=== PATIENT | male | born 1990 | race African-American/Black ===

== ENCOUNTER 2017-10-30 11:28 | Outpatient (CLI) ==
[2014-06-08 18:51] VITALS: BMI 25.0
== END 2017-10-30 11:29 | disposition home or self-care (01) ==
LOC: FCC-LAB 11:28
PROVIDERS: ATTEND Nurse Practitioner Family
DX: R10.84 Generalized abdominal pain (principal); K21.9 Gastro-esophageal reflux disease without esophagitis
CPT/HCPCS: 36415; 80053; 80061; 81001; 82150; 83690; 85025; 86677

== ENCOUNTER 2018-04-14 08:51 | Emergency (ER) ==
[2018-04-14 08:57] VITALS: BP 113/79; TEMP 99.1; BMI 26.3
[2018-04-14] MEDS ORDERED: GI COCKTAIL PO STA (09:42)
--- NOTE | 2018-04-14 10:20 | CT ---
EXAM: Noncontrast CT of the abdomen and pelvis. HISTORY: Epigastric pain. COMPARISON: None. TECHNIQUE: Contiguous axial images at 3 mm intervals were obtained from lung bases through the pelvi s. No contrast was given. Coronal reformats were reviewed. FINDINGS: The study is limited without contrast. CHEST: The lung bases show no lobar consolidation or effusion. There are calcified granulomas and c alcified lymph nodes. Small perifissural nodules are seen in the right lung base. No further follow -up needed.The heart size is within normal limits. ABDOMEN: Evaluation of the soft tissue organs is limited without contrast. LIVER: Noncontrast images of the liver show no solid mass lesion or intrahepatic ductal dilatation. BILIARY: The gallbladder is normally distended. No gallstones are noted. No pericholecystic fluid or inflammation. On axial image 45, there are two small calcifications which may lie within the comm on bile duct. The duct is not dilated. SPLEEN: The spleen is unremarkable. PANCREAS: The pancreas shows no mass lesion or peripancreatic inflammation. ADRENAL GLANDS: The adrenal glands are normal. RENAL: The kidneys show no hydronephrosis or nephrolithiasis. There are no obstructing ureteral sto flavia. No solid mass lesions are identified. RETROPERITONEUM: The aorta is unopacified. No aneurysm is identified. No significant aortic calcif ications are seen. There is no retroperitoneal or mesenteric adenopathy. BOWEL: The bowel is unopacified. There is no obstruction or inflammatory change. There is no free fluid or free air. No significant inflammatory changes are seen. The appendix is identified and is normal. PELVIS: BLADDER: The bladder is well distended and appears normal. GENITOURINARY STRUCTURES: The prostate is unremarkable. OSSEOUS STRUCTURES: The osseous structures are normal for age. IMPRESSION 1. No acute intra-abdominal abnormality. Limited study without contrast. No obstructing ureteral s tones. 2. The appendix is normal. 3. There are two small calcifications measuring to 2 to 3 mm in size. These are near the common john e duct and may be within the duct. There is no ductal dilatation. Correlate with history and sympto ms. Ultrasound may be beneficial.
--- NOTE | 2018-04-14 10:36 | ED.PDOC ---
General ED Provider: Dr. JIMMY HINTON Chief Complaint: Abdominal Pain Stated Complaint: abdominal pain Time Seen by Physician: 09:00 (seen with rosa us at all time pt has reflux issue is very familiar with this pain his off meds x weeks) Mode of Arrival: Walk-In Information Source: Patient Exam Limitations: No limitations Primary Care Provider: PAULINO MAGUIRE Nursing and Triage Documentation Reviewed and Agree: Yes Does patient meet sepsis criteria?: No System Inflammatory Response Syndrome: Not Applicable Sepsis Protocol: For patient's 13 years and over: Temp is 96.8 and below OR 101 and greater Pulse >90 BPM Resp >20/minute Acutely Altered Mental Status Are patient's symptoms suggestive of a new infection, such as: -Pneumonia -Skin, Soft Tissue -Endocarditis -UTI -Bone, Joint Infection -Implantable Device -Acute Abdominal Infection -Wound Infection -Meningitis -Blood Stream Catheter Infection -Unknown GI Complaint Exam - Abdominal Pain Complaint/Exam Onset: Gradual Duration: 1 day Symptoms Are: Still present Timing: Intermittent Current Severity: Moderate Location of Pain: Epigastric Radiates To: Denies: Chest, Back, Flank, LLQ, RLQ, Inguinal Character: Reports: Burning Aggravating: Reports: None Alleviating: Reports: None Associated Signs and Symptoms: Denies: Diaphoresis, Fever, Cough, Chest pain, Dizziness, Back pain, Constipation, Blood in stool, Dysuria, Urinary frequency, Decreased urine output, Decreased appetite, Discharge, Nausea, Vomiting, Diarrhea, Decreased activity Related History: Reports: Similar episode AAA Risk Factors: Reports: None Cardiac Risk Factors: Reports: None Testicular Torsion Risk Factors: Reports: None Surgical Obstruction Risk Factors: Reports: None Related Surgical History: Reports: None Abdominal Findings: Present: None Differential Diagnoses: Appendicitis, Bowel Obstruction, Constipation, Diverticulitis, Gastroenteritis, Hepatitis, Pancreatitis, Irritable Bowel Syndrome Review of Systems - Review Of Systems Constitutional: Reports: No symptoms Eyes: Reports: No symptoms Ears, Nose, Mouth, Throat: Reports: No symptoms Respiratory: Reports: No symptoms Cardiac: Reports: No symptoms GI: Reports: Abdominal pain : Reports: No symptoms Musculoskeletal: Reports: No symptoms Skin: Reports: No symptoms Neurological: Reports: No symptoms Endocrine: Reports: No symptoms Hematologic/Lymphatic: Reports: No symptoms All Other Systems: Reviewed and Negative Past Medical History - Past Medical History Previously Healthy: Yes Endocrine: Reports: None Cardiovascular: Reports: None Respiratory: Reports: None Hematological: Reports: None Gastrointestinal: Reports: GERD Genitourinary: Reports: None Neuro/Psych: Reports: None Musculoskeletal: Reports: None Cancer: Reports: None - Surgical History General Surgical History: Reports: None - Family History Family History: Reports: None - Social History Smoking Status: Never smoker Hx Substance Use: No Alcohol Screening: None Physical Exam - Physical Exam Appearance: Well-appearing, No pain distress, Well-nourished Eyes: AGATHA, EOMI, Conjunctiva clear ENT: Ears normal, Nose normal, Oropharynx normal Respiratory: Airway patent, Breath sounds clear, Breath sounds equal, Respirations nonlabored Cardiovascular: RRR, Pulses normal, No rub, No murmur GI/: Soft, Nontender, No masses, Bowel sounds normal, No Organomegaly Musculoskeletal: Normal strength, ROM intact, No edema, No calf tenderness Skin: Warm, Dry, Normal color Neurological: Sensation intact, Motor intact, Reflexes intact, Cranial nerves intact, Alert, Oriented Psychiatric: Affect appropriate, Mood appropriate Interpretation - Radiology Interpretation Radiology Interpretation By: Radiologist Radiology Results: No acute changes Exam Interpreted: CT Scan Critical Care Note - Critical Care Note Total Time (mins): 0 Course - Course Hematology/Chemistry: 04/14/18 09:50 04/14/18 09:50 Orders, Labs, Meds: Lab Review 04/14/18 04/14/18 09:50 09:50 WBC 11.96 H RBC 4.53 L Hgb 14.1 Hct 40.0 L MCV 88.3 MCH 31.1 H MCHC 35.3 RDW Coeff of Aneudy 12.5 Plt Count 202 Immature Gran % (Auto) 0.3 Neut % (Auto) 82.4 Lymph % (Auto) 9.0 L Dupage % (Auto) 7.9 Eos % (Auto) 0.1 Baso % (Auto) 0.3 Immature Gran # (Auto) 0.0 Neut # (Auto) 9.9 H Lymph # (Auto) 1.1 Dupage # (Auto) 0.9 Eos # (Auto) 0.0 Baso # (Auto) 0.0 Sodium 136.5 L Potassium 4.04 Chloride 102.4 Carbon Dioxide 28.0 Anion Gap 10.14 BUN 11.5 Creatinine 1.04 Estimated GFR (MDRD) 102.00 BUN/Creatinine Ratio 11.05 Glucose 101.5 Calcium 9.82 Total Bilirubin 1.07 AST 46.0 ALT 74.6 H Alkaline Phosphatase 54.9 Total Protein 7.72 Albumin 4.57 Globulin 3.15 Albumin/Globulin Ratio 1.45 Amylase 102.0 Lipase 58.1 Orders Category Date Time Status AMYLASE Stat LAB 04/14/18 09:50 Completed CBC W/ AUTO DIFF Stat LAB 04/14/18 09:50 Completed COMPREHENSIVE METABOLIC PANEL Stat LAB 04/14/18 09:50 Completed LIPASE Stat LAB 04/14/18 09:50 Completed Mag-Al Plus//Lidocaine [Gi Cocktail] MEDS 04/14/18 09:42 Discontinued 30 ml PO ONCE STA CT ABDOMEN/PELVIS WO CONTRAST Stat RADS 04/14/18 09:42 Completed Medications Discontinued Medications Generic Name Dose Route Start Last Admin Trade Name Freq PRN Reason Stop Dose Admin Al Hydroxide/Mg Hydroxide 30 ml 04/14/18 09:42 04/14/18 10:03 Gi Cocktail PO 04/14/18 09:43 30 ml ONCE STA Administration Vital Signs: Temp Pulse Resp BP Pulse Ox 04/14/18 08:51 99.1 F 81 16 113/79 95 Departure - Departure Time of Disposition: 10:36 Disposition: HOME SELF-CARE Discharge Problem: Abdominal pain GERD (gastroesophageal reflux disease) Qualifiers: Esophagitis presence: esophagitis presence not specified Qualified Code(s): K21.9 - Gastro-esophageal reflux disease without esophagitis Instructions: Gastroesophageal Reflux Disease (ED) Condition: Good Pt referred to PMD for follow-up: Yes IPMP verified?: No Additional Instructions: Please call your Family Physician as soon as possible to schedule a follow-up appointment. Allergies/Adverse Reactions: Allergies No Known Allergies Allergy (Verified 04/14/18 08:58) Home Medications: Ambulatory Orders 1 [No Reported Medications] 06/07/14 Disposition Discussed With: Patient
== END 2018-04-14 10:47 | disposition home or self-care (01) ==
LOC: ED 08:51
DX: R10.9 Unspecified abdominal pain (principal); K21.9 Gastro-esophageal reflux disease without esophagitis
CPT/HCPCS: 36415; 80053; 82150; 83690; 85025; 99283

== ENCOUNTER 2018-04-17 13:01 | Outpatient (CLI) ==
[2018-04-16 11:33] VITALS: BMI 26.3
== END 2018-04-17 13:02 | disposition home or self-care (01) ==
LOC: FCC-LAB 13:01
PROVIDERS: ATTEND Family Medicine
DX: R10.13 Epigastric pain (principal)
CPT/HCPCS: 87338

== ENCOUNTER 2018-04-19 08:22 | Outpatient (CLI) ==
[2018-04-16 11:33] VITALS: BMI 26.3
--- NOTE | 2018-04-19 09:09 | US ---
EXAM: Abdominal ultrasound limited HISTORY: Epigastric pain COMPARISON: CT abdomen pelvis 04/14/2018 TECHNIQUE: Sonographic and limited Doppler evaluation of the right upper quadrant was performed. FINDINGS: The liver is normal in echogenicity and measures 12.6 cm. The portal vein is patent. The gallbladder demonstrates no sludge or stones. The gallbladder wall measures 0.2 cm in thickness. Co mmon bile duct is unremarkable and measures 0.2 cm in diameter, but is partially obscured due to andrew l gas. The pancreas is unremarkable in appearance. The right kidney measures 8.9 x 4.4 x 3.3 cm with cortical thickness of 0.8 cm. IMPRESSION: No acute sonographic abnormality to account for patient's symptoms.
== END 2018-04-19 08:23 | disposition home or self-care (01) ==
LOC: RAD 08:22
PROVIDERS: ATTEND Family Medicine
DX: R10.13 Epigastric pain (principal)

== ENCOUNTER 2018-04-25 07:57 | Outpatient (CLI) ==
[2018-04-16 11:33] VITALS: BMI 26.3
--- NOTE | 2018-04-25 10:33 | NM ---
EXAM: Hepatobiliary imaging HISTORY: Right upper quadrant pain COMPARISON: Limited abdominal ultrasound on 04/19/2018 showed no abnormality. TECHNIQUE: Patient was injected 5.5 mCi of technetium 99m mebrofenin intravenously. Multiple anterio r scintigraphic images of the right upper quadrant region of the abdomen were obtained up to 1 hour i nterval. Patient was subsequently given fatty meal and gallbladder ejection fraction was calculated. FINDINGS: There is normal visualization of liver, gallbladder, bile duct and small bowel loops. Gall bladder ejection fraction is 39%. IMPRESSION: Normal study
== END 2018-04-25 07:58 | disposition home or self-care (01) ==
LOC: RAD 07:57
PROVIDERS: ATTEND Family Medicine
DX: R10.11 Right upper quadrant pain (principal)

== ENCOUNTER 2018-05-01 15:27 | Emergency (ER) ==
[2018-05-01 15:29] VITALS: BMI 26.3
[2018-05-01 15:31] VITALS: BP 137/84; TEMP 99
--- NOTE | 2018-05-01 16:47 | ED.PDOC ---
General ED Provider: Dr. HEAVEN JAY Chief Complaint: Abscess Stated Complaint: Started as pimple on right buttock. Put prid on it and now is red, swollen, painful. No drainage Time Seen by Physician: 16:30 Mode of Arrival: Walk-In Information Source: Patient Primary Care Provider: PAULINO MAGUIRE Nursing and Triage Documentation Reviewed and Agree: Yes Does patient meet sepsis criteria?: No System Inflammatory Response Syndrome: Not Applicable Sepsis Protocol: For patient's 13 years and over: Temp is 96.8 and below OR 101 and greater Pulse >90 BPM Resp >20/minute Acutely Altered Mental Status Are patient's symptoms suggestive of a new infection, such as: -Pneumonia -Skin, Soft Tissue -Endocarditis -UTI -Bone, Joint Infection -Implantable Device -Acute Abdominal Infection -Wound Infection -Meningitis -Blood Stream Catheter Infection -Unknown Skin Complaint Exam - Skin/Soft Tissue Complaint/Exam Onset/Duration: last several days Symptoms Are: Worse Timing: Constant Initial Severity: Severe Current Severity: Severe Location: Rt Mid Buttocks Character: Reports: Redness, Swelling, Painful Aggravating: Reports: Touch Alleviating: Reports: None Associated Signs and Symptoms: Denies: Fever, Chills, Itching, Drainage, Bruising, Tenderness, Red streaks, Joint swelling Related History: Denies: Similar episode, Recent trauma, Foreign body, Insect bite/sting, Recent travel Recent Exposure to Others w/Similar Symptoms: No Skin Findings: Present: Erythema, Induration Joint Tenderness Present: No Differential Diagnoses: Abscess Review of Systems - Review Of Systems Constitutional: Reports: No symptoms Eyes: Reports: No symptoms Ears, Nose, Mouth, Throat: Reports: No symptoms Respiratory: Reports: No symptoms Cardiac: Reports: No symptoms GI: Reports: No symptoms : Reports: No symptoms Musculoskeletal: Reports: No symptoms Skin: Reports: No symptoms Neurological: Reports: No symptoms Endocrine: Reports: No symptoms Hematologic/Lymphatic: Reports: No symptoms All Other Systems: Reviewed and Negative Past Medical History - Past Medical History Previously Healthy: Yes Endocrine: Reports: None Cardiovascular: Reports: None Respiratory: Reports: None Hematological: Reports: None Gastrointestinal: Reports: GERD Genitourinary: Reports: None Neuro/Psych: Reports: None Musculoskeletal: Reports: None Cancer: Reports: None - Surgical History General Surgical History: Reports: None - Family History Family History: Reports: None - Social History Smoking Status: Never smoker Hx Substance Use: No Alcohol Screening: None Physical Exam - Physical Exam Appearance: Well-appearing Ill-appearing: None Pain Distress: Moderate Eyes: AGATHA, EOMI, Conjunctiva clear ENT: Ears normal, Nose normal, Oropharynx normal Neck: Supple Respiratory: Airway patent, Breath sounds clear, Breath sounds equal, Respirations nonlabored Cardiovascular: RRR, Pulses normal, No rub, No murmur GI/: Soft, Nontender, No masses, Bowel sounds normal, No Organomegaly Musculoskeletal: Normal strength, ROM intact, No edema, No calf tenderness Skin: Warm, Dry, Normal color Neurological: Sensation intact, Motor intact, Reflexes intact, Cranial nerves intact, Alert, Oriented Psychiatric: Affect appropriate, Mood appropriate Procedures - Incision and Drainage Site: Lt Mid Gluteal Instrument Used: 11 Blade I & D Procedure: Yes: Betadine Prep, Sterile drapes applied, Sterile dressing applied, Packing placed Type of Drainage: Present: Pus, Blood Irrigated: Yes (20 cc NS) Progress: In stable post operative condition. After drainage surrounding induration and tenderness lessened Drainage approximately 20 cc Re-Evaluation - Re-Evaluation Time of Re-Evaluation: 18:30 Status: Improved Vital Signs Stable: Yes Pain Level: 3/10 down from 8/10 Appearance: NAD Lungs: Clear Skin: Warm and Dry Neuro: Alert and Oriented X3 CV: RRR Critical Care Note - Critical Care Note Total Time (mins): 60 Course - Course Orders, Labs, Meds: Orders Category Date Time Status CULTURE WOUND [WOUND CULTURE] Stat LAB 05/01/18 18:24 Completed Ceftriaxone Sodium [Rocephin] MEDS 05/01/18 18:18 Discontinued 1 gm IM ONCE STA Hydromorphone HCl [Dilaudid 1 mg/ml Syringe] MEDS 05/01/18 16:54 Discontinued 2 mg IM ONCE STA Lidocaine HCl/Pf [Lidocaine HCl 1% Sdv] MEDS 05/01/18 18:18 Discontinued 2.1 ml IM ONCE STA Ondansetron [Zofran Odt] MEDS 05/01/18 18:37 Discontinued 4 mg PO ONCE STA Medications Discontinued Medications Generic Name Dose Route Start Last Admin Trade Name Freq PRN Reason Stop Dose Admin Ceftriaxone Sodium 1 gm 05/01/18 18:18 05/01/18 18:34 Rocephin IM 05/01/18 18:19 1 gm ONCE STA Administration Hydromorphone HCl 2 mg 05/01/18 16:54 05/01/18 17:02 Dilaudid 1 Mg/Ml Syringe IM 05/01/18 16:55 2 mg ONCE STA Administration Lidocaine HCl 2.1 ml 05/01/18 18:18 05/01/18 18:34 Lidocaine Hcl 1% Sdv IM 05/01/18 18:19 2.1 ml ONCE STA Administration Ondansetron HCl 4 mg 05/01/18 18:37 05/01/18 18:44 Zofran Odt PO 05/01/18 18:38 4 mg ONCE STA Administration Vital Signs: Temp Pulse Resp BP Pulse Ox 05/01/18 15:29 99.0 F 94 H 18 137/84 96 Departure - Departure Time of Disposition: 18:45 Disposition: HOME SELF-CARE Discharge Problem: Abscess, gluteal, right, Nausea & vomiting Instructions: Abscess (ED) Condition: Good Pt referred to PMD for follow-up: Yes (Dr Maguire in 48 hrs) IPMP verified?: No Prescriptions: Hydrocodone Bit/Acetaminophen [[place] 5-325] 1 each PO Q6HR PRN #10 tablet PRN Reason: gluteal pain Cephalexin [Keflex] 500 mg PO Q8HR #21 capsule Ondansetron [Zofran Odt] 4 mg PO Q8H #10 tab.rapdis Allergies/Adverse Reactions: Allergies No Known Allergies Allergy (Verified 05/01/18 15:31) Home Medications: Ambulatory Orders Cephalexin [Keflex] 500 mg PO Q8HR #21 capsule 05/01/18 Hydrocodone Bit/Acetaminophen [[place] 5-325] 1 each PO Q6HR PRN #10 tablet Ondansetron [Zofran Odt] 4 mg PO Q8H #10 tab.rapdis 05/01/18 Disposition Discussed With: Patient, Family Additional Information: Post injection of Dilaudid patient received pain control; but became diaphoretic with nausea and vomiting. Controlled with treatment and was in satisfactory condition at time of discharge to home,
[2018-05-01] MEDS ORDERED: DILAUDID 1 MG/ML SYRINGE IM STA (16:54)
[2018-05-01] MEDS ORDERED: ROCEPHIN IM STA (18:18)
[2018-05-01] MEDS ORDERED: LIDOCAINE HCL 1% SDV IM STA (18:18)
[2018-05-01] MEDS ORDERED: ZOFRAN ODT PO STA (18:37)
== END 2018-05-01 19:41 | disposition home or self-care (01) ==
LOC: ED 15:27
DX: L02.31 Cutaneous abscess of buttock (principal); R11.2 Nausea with vomiting, unspecified
CPT/HCPCS: 87070; 87186; 96372; 99283

== ENCOUNTER 2018-11-24 17:06 | Emergency (ER) ==
[2018-11-24 17:10] VITALS: BP 118/77; TEMP 100; BMI 25.7
--- NOTE | 2018-11-24 17:29 | ED.PDOC ---
General ED Provider: Dr. JIMMY HINTON Chief Complaint: Tooth Problem Stated Complaint: dental pain, right ear pain Time Seen by Physician: 17:17 Mode of Arrival: Walk-In Information Source: Patient Exam Limitations: No limitations Primary Care Provider: PAULINO MAGUIRE Nursing and Triage Documentation Reviewed and Agree: Yes Does patient meet sepsis criteria?: No System Inflammatory Response Syndrome: Not Applicable Sepsis Protocol: For patient's 13 years and over: Temp is 96.8 and below OR 101 and greater Pulse >90 BPM Resp >20/minute Acutely Altered Mental Status Are patient's symptoms suggestive of a new infection, such as: -Pneumonia -Skin, Soft Tissue -Endocarditis -UTI -Bone, Joint Infection -Implantable Device -Acute Abdominal Infection -Wound Infection -Meningitis -Blood Stream Catheter Infection -Unknown EENT Complaint Exam - Dental/Oral Complaint/Exam Mechanism of Injury: No known trauma Onset/Duration: today Symptoms Are: Still present Timing: Constant Initial Severity: Moderate Current Severity: Moderate Character: Reports: Throbbing Aggravating: Reports: Heat, Cold, Chewing Alleviating: Reports: None Associated Signs and Symptoms: Denies: Swelling, Discharge, Fever, Foul odor, Foul taste in mouth Related History: Reports: Similar episode Cardiac Risk Factors: Reports: None Dental/Oral Surgical History: Reports: None Tooth Findings: Present: Gross caries Cervical Lymphadenopathy Present: No Facial Swelling Present: No Bleeding Present: No Oropharynx Findings: Absent: Clots, Active bleeding Septal Hematoma: No Foreign Body Present: No Dysphagia Present: No Drooling Present: No Asymmetrical Tonsillar Swelling Present: No Uvula Midline: Yes Keila-tonsillar Fluctuence: No Trismus Present: No Palatal Petechiae Present: No Scarlatinaform Rash Present: No Lesions: Absent: Lip, Gums, Tongue, Buccal Mucosa, Pharynx Exanthem: Absent: Lip, Gums, Tongue, Buccal Mucosa, Pharynx Vesicles: Absent: Lip, Gums, Tongue, Buccal Mucosa, Pharynx Teeth Picture: 1 - decay Differential Diagnoses: Dental Caries, Fractured Tooth Review of Systems - Review Of Systems Constitutional: Reports: No symptoms Eyes: Reports: No symptoms Ears, Nose, Mouth, Throat: Reports: No symptoms Respiratory: Reports: No symptoms Cardiac: Reports: No symptoms GI: Reports: No symptoms : Reports: No symptoms Musculoskeletal: Reports: No symptoms Skin: Reports: No symptoms Neurological: Reports: No symptoms Endocrine: Reports: No symptoms Hematologic/Lymphatic: Reports: No symptoms All Other Systems: Reviewed and Negative Past Medical History - Past Medical History Previously Healthy: Yes Endocrine: Reports: None Cardiovascular: Reports: None Respiratory: Reports: None Hematological: Reports: None Gastrointestinal: Reports: GERD Genitourinary: Reports: None Neuro/Psych: Reports: None Musculoskeletal: Reports: None Cancer: Reports: None - Surgical History General Surgical History: Reports: None - Family History Family History: Reports: None - Social History Smoking Status: Never smoker Hx Substance Use: No Alcohol Screening: None - Immunizations Tetanus Shot up to Date: Yes Physical Exam - Physical Exam Appearance: Well-appearing, No pain distress, Well-nourished Eyes: AGATHA, EOMI, Conjunctiva clear ENT: Ears normal, Nose normal, Oropharynx normal Respiratory: Airway patent, Breath sounds clear, Breath sounds equal, Respirations nonlabored Cardiovascular: RRR, Pulses normal, No rub, No murmur GI/: Soft, Nontender, No masses, Bowel sounds normal, No Organomegaly Musculoskeletal: Normal strength, ROM intact, No edema, No calf tenderness Skin: Warm, Dry, Normal color Neurological: Sensation intact, Motor intact, Reflexes intact, Cranial nerves intact, Alert, Oriented Psychiatric: Affect appropriate, Mood appropriate Critical Care Note - Critical Care Note Total Time (mins): 0 Course - Course Vital Signs: Temp Pulse Resp BP Pulse Ox 11/24/18 17:07 100 F H 73 16 118/77 98 Departure - Departure Time of Disposition: 17:29 Disposition: HOME SELF-CARE Discharge Problem: Toothache Instructions: Toothache (ED) Condition: Good Pt referred to PMD for follow-up: Yes IPMP verified?: No Additional Instructions: Please call your Family Physician as soon as possible to schedule a follow-up appointment. Allergies/Adverse Reactions: Allergies No Known Allergies Allergy (Verified 05/01/18 15:31) Home Medications: Ambulatory Orders 1 [No Reported Medications] 11/24/18 Disposition Discussed With: Patient
== END 2018-11-24 17:40 | disposition home or self-care (01) ==
LOC: ED 17:06
DX: K08.89 Other specified disorders of teeth and supporting structures (principal); K02.7 Dental root caries; S02.5XXA Fracture of tooth (traumatic), initial encounter for closed fracture
CPT/HCPCS: 99282

== ENCOUNTER 2018-12-26 21:14 | Emergency (ER) ==
[2018-12-26 21:20] VITALS: BP 127/76; TEMP 98.6; BMI 25.6
[2018-12-26] MEDS ORDERED: DECADRON 4 MG/ML SDV IM STA (21:21)
[2018-12-26] MEDS ORDERED: ZANTAC PO STA (21:22)
[2018-12-26] MEDS ORDERED: BENADRYL IM STA (21:22)
--- NOTE | 2018-12-26 21:25 | ED.PDOC ---
General ED Provider: Dr. HEAVEN ASKEW-ER Chief Complaint: Rash Stated Complaint: julio cesar got hives aNd they itch Time Seen by Physician: 21:23 Mode of Arrival: Walk-In Information Source: Patient Exam Limitations: No limitations Primary Care Provider: PAULINO MAGUIRE Nursing and Triage Documentation Reviewed and Agree: Yes Does patient meet sepsis criteria?: No System Inflammatory Response Syndrome: Not Applicable Sepsis Protocol: For patient's 13 years and over: Temp is 96.8 and below OR 101 and greater Pulse >90 BPM Resp >20/minute Acutely Altered Mental Status Are patient's symptoms suggestive of a new infection, such as: -Pneumonia -Skin, Soft Tissue -Endocarditis -UTI -Bone, Joint Infection -Implantable Device -Acute Abdominal Infection -Wound Infection -Meningitis -Blood Stream Catheter Infection -Unknown Skin Complaint Exam - Skin Rash/Itching Complaint/Exam Onset/Duration: 24 hr Symptoms Are: Still present Initial Severity: Mild Current Severity: Moderate Location: hand, trunk Potential Exposures: Reports: Unknown Aggravating: Reports: None Alleviating: Reports: None Associated Signs and Symptoms: Denies: Difficulty breathing, Fever, Chills Skin Findings: Present: Urticaria Differential Diagnoses: Allergic Reaction Review of Systems - Review Of Systems Constitutional: Reports: No symptoms Eyes: Reports: No symptoms Ears, Nose, Mouth, Throat: Reports: No symptoms Respiratory: Reports: No symptoms Cardiac: Reports: No symptoms GI: Reports: No symptoms : Reports: No symptoms Musculoskeletal: Reports: No symptoms Skin: Reports: Rash Neurological: Reports: No symptoms Endocrine: Reports: No symptoms Hematologic/Lymphatic: Reports: No symptoms All Other Systems: Reviewed and Negative Past Medical History - Past Medical History Previously Healthy: Yes Endocrine: Reports: None Cardiovascular: Reports: None Respiratory: Reports: None Hematological: Reports: None Gastrointestinal: Reports: GERD Genitourinary: Reports: None Neuro/Psych: Reports: None Musculoskeletal: Reports: None Cancer: Reports: None - Surgical History General Surgical History: Reports: None - Family History Family History: Reports: None - Social History Smoking Status: Never smoker Hx Substance Use: No Alcohol Screening: Occasionally - Immunizations Tetanus Shot up to Date: Yes Physical Exam - Physical Exam Appearance: Well-appearing Eyes: AGATHA, EOMI, Conjunctiva clear ENT: Ears normal, Nose normal, Oropharynx normal Neck: Supple Respiratory: Airway patent Cardiovascular: RRR GI/: Soft, Nontender, No masses, Bowel sounds normal, No Organomegaly Musculoskeletal: Normal strength, ROM intact, No edema, No calf tenderness Skin: Warm, Dry, Normal color Neurological: Sensation intact, Motor intact, Reflexes intact, Cranial nerves intact, Alert, Oriented Psychiatric: Affect appropriate, Mood appropriate Re-Evaluation - Re-Evaluation Time of Re-Evaluation: 21:45 Status: Improved Vital Signs Stable: Yes Pain Level: 0 Appearance: NAD Lungs: Clear Skin: Warm and Dry Neuro: Alert and Oriented X3 CV: RRR Critical Care Note - Critical Care Note Total Time (mins): 0 Course - Course Orders, Labs, Meds: Orders Category Date Time Status Dexamethasone 4 mg/ml Inj [Decadron 4 mg/ml Sdv] MEDS 12/26/18 21:21 Stat 8 mg IM ONCE STA Diphenhydramine Inj [Benadryl] MEDS 12/26/18 21:22 Stat 50 mg IM ONCE STA Ranitidine HCl [Zantac] MEDS 12/26/18 21:22 Stat 300 mg PO ONCE STA Medications Generic Name Dose Route Start Last Admin Trade Name Charo PRN Reason Stop Dose Admin Dexamethasone Sodium Phosphate 8 mg 12/26/18 21:21 Decadron 4 Mg/Ml Sdv IM 12/26/18 21:22 ONCE STA Diphenhydramine HCl 50 mg 12/26/18 21:22 Benadryl IM 12/26/18 21:23 ONCE STA Ranitidine HCl 300 mg 12/26/18 21:22 Zantac PO 12/26/18 21:23 ONCE STA Vital Signs: Temp Pulse Resp BP Pulse Ox 12/26/18 21:14 98.6 F 72 20 127/76 99 Departure - Departure Time of Disposition: 21:24 Disposition: HOME SELF-CARE Discharge Problem: Pruritic rash Instructions: Urticaria (ED) Condition: Good Pt referred to PMD for follow-up: Yes IPMP verified?: No Allergies/Adverse Reactions: Allergies No Known Allergies Allergy (Verified 12/26/18 21:19) Home Medications: Ambulatory Orders Fexofenadine HCl [Joyce Allergy] 180 mg PO BID INSULIN #30 tablet 12/26/18 Methylprednisolone [Medrol Dosepak] 4 mg PO DIRECTED #1 pkg 12/26/18 Ranitidine HCl [Zantac] 150 mg PO BIDAC #30 tablet 12/26/18 Transfer Form Completed: No Disposition Discussed With: Patient
== END 2018-12-26 21:55 | disposition home or self-care (01) ==
LOC: ED 21:14
DX: R21 Rash and other nonspecific skin eruption (principal); L29.9 Pruritus, unspecified
CPT/HCPCS: 96372; 99282